=== PATIENT | female | born 1965 | race Two or more races ===

== ENCOUNTER 2018-10-23 15:39 | Emergency (ER) | payer MEDICAID ==
[~2018-10-23] VITALS: Ht 165.1 cm; Wt 83.0 kg
--- NOTE | 2018-10-23 15:58 | NUR ---
DR JENKINS AT BEDSIDE FOR EVAL.
[2018-10-23] MEDS ORDERED: KETOROLAC TROMETHAMINE INJ 30 MG/ML VIAL IV ONE (16:00)
[2018-10-23] MEDS ORDERED: PENICILLIN G BENZATHINE 2.4 MMU/4 ML ML IM ONE ×2 (16:00→16:02)
[2018-10-23] MEDS ORDERED: DEXAMETHASONE SOD PHOSPHATE 4 MG/ML VIAL IV ONE (16:00)
[2018-10-23] MEDS ORDERED: IV NS 0.9% 500 ML BAG IV ONE (16:00)
[2018-10-23] MEDS ORDERED: KETOROLAC TROMETHAMINE 15 MG/ML VIAL ONE (16:01)
[2018-10-23] MEDS ORDERED: DEXAMETHASONE SOD PHOSPHATE 10 MG/ML VIAL ONE (16:02)
[2018-10-23 17:12] VITALS: BP 143/91
--- NOTE | 2018-10-23 17:14 | NUR ---
unable to depart from [facility]
== END 2018-10-23 17:14 | disposition home or self-care (01) ==
LOC: ER 15:41
DX: J02.9 Acute pharyngitis, unspecified (principal); R03.0 Elevated blood-pressure reading, without diagnosis of hypertension; Z90.49 Acquired absence of other specified parts of digestive tract
CPT/HCPCS: 96372; 96374; 96375; 99283; J0558; J1100; J1885; J7040

== ENCOUNTER 2018-10-26 09:17 | Emergency (ER) | payer MEDICAID ==
[~2018-10-26] VITALS: Ht 162.6 cm; Wt 77.6 kg
--- NOTE | 2018-10-26 09:18 | NUR ---
TO ER BED 10, AOX4, PT C/O SOB, MID CHEST PRESSURE LIKE PAIN. HOOKED TO MONITOR, CHANGED TO GOWN, PROVIDED W WARM BLANKET, AWAITING MD ALEGRIA
--- NOTE | 2018-10-26 09:37 | NUR ---
DR QUEZADA AT BEDSIDE
[2018-10-26] MEDS ORDERED: LORAZEPAM 0.5 MG TABLET ONE (09:49)
[2018-10-26 09:52] LABS: BASOPHILS # (AUTO) 0.1 /CMM (0.0-0.2); BASOPHILS % (AUTO) 1.5 % (0.0-2.0); EOSINOPHILS % (AUTO) 1.6 % (0.0-6.0); HEMATOCRIT 41 % (33-45); HEMOGLOBIN 13.7 g/dL (11.5-14.8); LYMPHOCYTES # (AUTO) 2.3 /CMM (0.8-4.8); LYMPHOCYTES % (AUTO) 40.2 % (20.0-44.0); MEAN CORPUSCULAR HGB CONC 34 g/dl (31.0-36.0); MEAN CORPUSCULAR VOLUME 83 fL (82-100); MONOCYTES # (AUTO) 0.2 /CMM (0.1-1.30); MONOCYTES % (AUTO) 4.1 % (2.0-12.0); NEUTROPHILS % (AUTO) 52.6 % (43.0-81.0); PLATELET COUNT (AUTO) 309 /CMM (150-450); RED BLOOD CELL COUNT(AUTO) 4.91 MIL/uL (4.0-5.2); WHITE BLOOD COUNT (AUTO) 5.7 K/uL (4.3-11.0)
[2018-10-26] MEDS ORDERED: LORAZEPAM 1 MG TABLET PO ONE (10:00)
[2018-10-26 10:04] LABS: ALANINE AMINOTRANSFERASE 60 U/L (12-78); ALBUMIN 3.4 g/dL (3.4-5.0); ALCOHOL, BLOOD < 3 mg/dL (0-0); ALKALINE PHOSPHATASE 84 U/L (46-116); ASPARTATE AMINOTRANSFERASE 44 U/L (15-37); BILIRUBIN,DIRECT 0.1 mg/dL (0.0-0.2); BILIRUBIN,TOTAL 0.4 mg/dL (0.2-1.0); CALCIUM, SERUM 9.3 mg/dL (8.5-10.1); CARBON DIOXIDE 24 mmol/L (21-32); CHLORIDE 106 mmol/L (98-107); CREATININE 0.8 mg/dL (0.6-1.3); GLUCOSE 109 mg/dL (74-106); POTASSIUM 3.9 mmol/L (3.5-5.1); SODIUM SERUM 142 mmol/L (136-145); TOTAL PROTEIN, SERUM 7.7 g/dL (6.4-8.2); UREA NITROGEN, BLOOD 12 mg/dL (7-18)
[2018-10-26 10:09] LABS: APPEARANCE,URINE Clear (CLEAR); BILIRUBIN,URINE Negative (NEGATIVE); BLOOD, URINE Negative Ery/uL (NEGATIVE); COLOR,URINE Yellow (YELLOW); KETONES,URINE Negative (NEGATIVE); LEUKOCYTE ESTERASE ,URINE Negative (NEGATIVE); NITRITE, URINE Negative (NEGATIVE); PROTEIN,URINE Negative (NEGATIVE); UGLUCOSE Negative (NEGATIVE); UROBILINOGEN,URINE 0.2 EU/dL (0.2)
--- NOTE | 2018-10-26 10:57 | NUR ---
Patient discharged to home in stable condition. Written and verbal after care instructions given. Patient verbalizes understanding of instruction.
[2018-10-26 11:01] VITALS: BP 122/81
== END 2018-10-26 11:00 | disposition home or self-care (01) ==
LOC: ER 09:17
DX: F41.9 Anxiety disorder, unspecified (principal); R06.4 Hyperventilation; R51 Headache; Z90.49 Acquired absence of other specified parts of digestive tract
CPT/HCPCS: 36415; 70450-TC; 71045-TC; 80048-TC; 80076-TC; 81000-TC; 84484-TC; 85025-TC; G0480

== ENCOUNTER 2019-06-26 08:03 | Emergency (ER) | payer MEDICAID ==
[~2019-06-26] VITALS: Ht 162.6 cm; Wt 74.8 kg
[2019-06-26] MEDS ORDERED: ONDANSETRON HCL/PF 4 MG/2 ML VIAL IVP ONE (08:30)
[2019-06-26] MEDS ORDERED: FAMOTIDINE/PF INJ 20 MG/2 ML VIAL IV ONE ×2 (08:30→08:33)
[2019-06-26] MEDS ORDERED: LIDOCAINE VISCOUS 2% UD 15 ML UDC MM ONE (08:30)
[2019-06-26] MEDS ORDERED: MAG HYDROX/AL HYDROX/SIMETH 30 ML UDC PO ONE (08:30)
[2019-06-26] MEDS ORDERED: MAG HYDROX/AL HYDROX/SIMETH 30 ML UDC ONE (08:33)
[2019-06-26] MEDS ORDERED: ONDANSETRON HCL/PF 4 MG/2 ML VIAL ONE (08:33)
[2019-06-26] MEDS ORDERED: LIDOCAINE VISCOUS 2% UD 15 ML UDC ONE (08:34)
--- NOTE | 2019-06-26 08:43 | NUR ---
PT REC'D TO ER C/O ABD PAIN 12/05 FOR 2 DAYS IV STARTE 20G LEFT AC 20 LABS SENT TO LAB
--- NOTE | 2019-06-26 08:44 | NUR ---
MEDS GIVEN PER MD ORDER CONT TO MONITOR
[2019-06-26 08:49] LABS: BASOPHILS # (AUTO) 0.1 /CMM (0.0-0.2); BASOPHILS % (AUTO) 1.8 % (0.0-2.0); EOSINOPHILS % (AUTO) 2.8 % (0.0-6.0); HEMATOCRIT 42 % (33-45); HEMOGLOBIN 14.1 g/dL (11.5-14.8); LYMPHOCYTES # (AUTO) 1.1 /CMM (0.8-4.8); LYMPHOCYTES % (AUTO) 16.9 % (20.0-44.0); MEAN CORPUSCULAR HGB CONC 34 g/dl (31.0-36.0); MEAN CORPUSCULAR VOLUME 83 fL (82-100); MONOCYTES # (AUTO) 0.1 /CMM (0.1-1.30); MONOCYTES % (AUTO) 2.1 % (2.0-12.0); NEUTROPHILS # (AUTO) 5.1 /CMM (1.8-8.9); NEUTROPHILS % (AUTO) 76.4 % (43.0-81.0); PLATELET COUNT (AUTO) 316 /CMM (150-450); RED BLOOD CELL COUNT(AUTO) 5.04 MIL/uL (4.0-5.2); WHITE BLOOD COUNT (AUTO) 6.7 K/uL (4.3-11.0)
--- NOTE | 2019-06-26 08:58 | NUR ---
ULTRASOUND AT BEDSIDE
[2019-06-26 09:01] LABS: BILIRUBIN,DIRECT 0.1 mg/dL (0.0-0.2); BILIRUBIN,TOTAL 0.5 mg/dL (0.2-1.0); CALCIUM, SERUM 9.5 mg/dL (8.5-10.1); CREATININE 0.8 mg/dL (0.6-1.3); TOTAL PROTEIN, SERUM 8.3 g/dL (6.4-8.2)
--- NOTE | 2019-06-26 09:06 | NUR ---
PT SATATED FEELING BETTER AMB WITHOUT ASSISTANCE PENDING D/C
--- NOTE | 2019-06-26 09:29 | NUR ---
PT. VERBALIZED UNDERSTANDING OF AFTERCARE INSTRUCTIONS.IV removed. Catheter intact and site benign. Pressure and 4x4 applied to site. No bleeding noted.Patient discharged to home in stable condition. Written and verbal after care instructions given. Patient verbalizes understanding of instruction.
[2019-06-26 09:30] VITALS: BP 134/86
== END 2019-06-26 09:31 | disposition home or self-care (01) ==
LOC: ER 08:05
DX: R10.11 Right upper quadrant pain (principal); R11.0 Nausea; K76.0 Fatty (change of) liver, not elsewhere classified; R74.0 Nonspecific elevation of levels of transaminase and lactic acid dehydrogenase [LDH]; Z90.49 Acquired absence of other specified parts of digestive tract
CPT/HCPCS: 36415; 71045; 76705; 80048; 80076; 83690; 85025; 96374; 96375; 99285; J2405; J3490

== ENCOUNTER 2019-08-08 23:59 | Emergency (ER) | payer MEDICAID, OTHER ==
[~2019-08-08] VITALS: Ht 154.9 cm; Wt 81.6 kg
[2019-08-08 23:59] VITALS: BP 140/86
--- NOTE | 2019-08-09 00:23 | NUR ---
DR. PENG AT THE BED SIDE
[2019-08-09] MEDS ORDERED: KETOROLAC TROMETHAMINE INJ 60 MG/2 ML VIAL IM ONE ×2 (00:30→00:34)
--- NOTE | 2019-08-09 00:42 | NUR ---
PT SIGNED WAIVER BEFORE RECEIVING TORADOL SHOT. MEDICALLY CLEAR FOR D/C PER MD. Patient discharged to home in stable condition. Rx abd Written and verbal after care instructions given. Patient verbalizes understanding of instruction.
== END 2019-08-09 00:46 | disposition home or self-care (01) ==
LOC: ER 08-09 00:05
DX: H60.93 Unspecified otitis externa, bilateral (principal); Z90.49 Acquired absence of other specified parts of digestive tract
CPT/HCPCS: 96372; 99283; J1885

== ENCOUNTER 2020-03-25 09:36 | Emergency (ER) | payer OTHER ==
[~2020-03-25] VITALS: Ht 154.9 cm; Wt 81.6 kg
--- NOTE | 2020-03-25 09:40 | NUR ---
c/o chest discomfort pressure like x 6 days 7/10 pain scale. Patient a/ox4, breathing even and unlabored, no sob noted, needs attended, kept comfortable. Changed into a gown, attached to the personnel monitor. EMT tech at bedside for ekg.
[2020-03-25] MEDS ORDERED: ASPIRIN 81 MG TAB.CHEW ONE (09:58)
[2020-03-25] MEDS ORDERED: ASPIRIN 81 MG TAB.CHEW PO ONE (10:00)
[2020-03-25 10:20] LABS: EOSINOPHILS % (AUTO) 3.9 % (0.0-6.0); HEMATOCRIT 42 % (33-45); LYMPHOCYTES # (AUTO) 1.9 /CMM (0.8-4.8); LYMPHOCYTES % (AUTO) 40.5 % (20.0-44.0); MEAN CORPUSCULAR HGB CONC 33 g/dl (31.0-36.0); MEAN CORPUSCULAR VOLUME 84 fL (82-100); MONOCYTES # (AUTO) 0.2 /CMM (0.1-1.30); MONOCYTES % (AUTO) 4.6 % (2.0-12.0); NEUTROPHILS # (AUTO) 2.3 /CMM (1.8-8.9); PLATELET COUNT (AUTO) 288 /CMM (150-450); WHITE BLOOD COUNT (AUTO) 4.6 K/uL (4.3-11.0)
[2020-03-25 10:37] LABS: CALCIUM, SERUM 9.5 mg/dL (8.5-10.1); CARBON DIOXIDE 26 mmol/L (21-32); CHLORIDE 104 mmol/L (98-107); CREATININE 0.8 mg/dL (0.6-1.3); GLUCOSE 112 mg/dL (74-106); POTASSIUM 3.8 mmol/L (3.5-5.1); SODIUM SERUM 141 mmol/L (136-145); UREA NITROGEN, BLOOD 9 mg/dL (7-18)
--- NOTE | 2020-03-25 11:36 | NUR ---
Patient a/ox4, breathing even and unlabored, no sob noted. Needs attended. Kept comfortable. Denies pain or discomfort noted. Patient discharged to home in stable condition. Written and verbal after care instructions given. Patient verbalizes understanding of instruction.
[2020-03-25 11:37] VITALS: BP 129/78
== END 2020-03-25 11:38 | disposition home or self-care (01) ==
LOC: ER 09:38
DX: R07.89 Other chest pain (principal); Z90.49 Acquired absence of other specified parts of digestive tract
CPT/HCPCS: 36415; 71045-TC; 80048-TC; 84484-TC; 85025-TC

== ENCOUNTER 2020-03-25 23:15 | Emergency (ER) | payer OTHER ==
[~2020-03-25] VITALS: Ht 160 cm; Wt 81.6 kg
--- NOTE | 2020-03-25 23:15 | NUR ---
PT CAME TO THE ER C/O MIDSTERNAL CHEST PAIN X 1 HOUR [employer] [employer]. +SOB +N/V. PT WAS SEEN HERE FOR THE SAME PROBLEM. PT AAOX4, VSS, RESPIRATIONS EVEN AND UNLABORED ON RA W/ NAD NOTED. PT CONNECTED TO THE WATCH PARTS GRINDER AND POX
--- NOTE | 2020-03-25 23:20 | NUR ---
BLOOD COLLECTED AND SENT TO LAB
[2020-03-26] MEDS ORDERED: ASPIRIN 81 MG TAB.CHEW PO ONE
[2020-03-26] MEDS ORDERED: LORAZEPAM 0.5 MG TABLET PO ONE
[2020-03-26] MEDS ORDERED: LORAZEPAM 0.5 MG TABLET ONE (00:05)
[2020-03-26] MEDS ORDERED: ASPIRIN 81 MG TAB.CHEW ONE (00:05)
[2020-03-26 00:07] LABS: BASOPHILS # (AUTO) 0.1 /CMM (0.0-0.2); BASOPHILS % (AUTO) 1.2 % (0.0-2.0); EOSINOPHILS % (AUTO) 4.6 % (0.0-6.0); HEMATOCRIT 40 % (33-45); HEMOGLOBIN 13.5 g/dL (11.5-14.8); LYMPHOCYTES # (AUTO) 3.2 /CMM (0.8-4.8); MEAN CORPUSCULAR HGB CONC 34 g/dl (31.0-36.0); MEAN CORPUSCULAR VOLUME 84 fL (82-100); MONOCYTES # (AUTO) 0.4 /CMM (0.1-1.30); MONOCYTES % (AUTO) 5.5 % (2.0-12.0); NEUTROPHILS # (AUTO) 2.6 /CMM (1.8-8.9); NEUTROPHILS % (AUTO) 39.7 % (43.0-81.0); PLATELET COUNT (AUTO) 293 /CMM (150-450); WHITE BLOOD COUNT (AUTO) 6.6 K/uL (4.3-11.0)
[2020-03-26 00:15] LABS: CALCIUM, SERUM 8.9 mg/dL (8.5-10.1); CARBON DIOXIDE 27 mmol/L (21-32); CHLORIDE 104 mmol/L (98-107); CREATININE 0.8 mg/dL (0.6-1.3); GLUCOSE 153 mg/dL (74-106); POTASSIUM 3.8 mmol/L (3.5-5.1); SODIUM SERUM 141 mmol/L (136-145); UREA NITROGEN, BLOOD 9 mg/dL (7-18)
[2020-03-26 01:34] VITALS: BP 145/52
--- NOTE | 2020-03-26 01:34 | NUR ---
Patient discharged to home in stable condition. Written and verbal after care instructions given. Patient verbalizes understanding of instruction.IV removed. Catheter intact and site benign. Pressure and 4x4 applied to site. No bleeding noted. Pt ambulatory w/ steady gait
== END 2020-03-26 01:35 | disposition home or self-care (01) ==
LOC: ER 23:18
DX: R07.89 Other chest pain (principal); E78.5 Hyperlipidemia, unspecified; E07.9 Disorder of thyroid, unspecified; F41.9 Anxiety disorder, unspecified; Z90.49 Acquired absence of other specified parts of digestive tract
CPT/HCPCS: 36415; 71045-TC; 80048-TC; 84484-TC; 85025-TC

== ENCOUNTER 2020-07-20 13:13 | Emergency (ER) | payer OTHER ==
[~2020-07-20] VITALS: Ht 162.6 cm; Wt 69.9 kg
[2020-07-20] MEDS ORDERED: ACETAMINOPHEN ES 500 MG TABLET ONE (14:15)
[2020-07-20 14:23] LABS: BASOPHILS # (AUTO) 0.1 /CMM (0.0-0.2); EOSINOPHILS % (AUTO) 1.2 % (0.0-6.0); HEMATOCRIT 40 % (33-45); HEMOGLOBIN 13.8 g/dL (11.5-14.8); LYMPHOCYTES # (AUTO) 2.5 /CMM (0.8-4.8); LYMPHOCYTES % (AUTO) 44.5 % (20.0-44.0); MEAN CORPUSCULAR HGB CONC 34 g/dl (31.0-36.0); MEAN CORPUSCULAR VOLUME 83 fL (82-100); MONOCYTES # (AUTO) 0.3 /CMM (0.1-1.30); MONOCYTES % (AUTO) 5.3 % (2.0-12.0); NEUTROPHILS # (AUTO) 2.7 /CMM (1.8-8.9); PLATELET COUNT (AUTO) 319 /CMM (150-450); RED BLOOD CELL COUNT(AUTO) 4.81 MIL/uL (4.0-5.2); WHITE BLOOD COUNT (AUTO) 5.5 K/uL (4.3-11.0)
[2020-07-20 14:29] LABS: CARBON DIOXIDE 28 mmol/L (21-32); CHLORIDE 104 mmol/L (98-107); CREATININE 0.9 mg/dL (0.6-1.3); GLUCOSE 100 mg/dL (74-106); POTASSIUM 3.8 mmol/L (3.5-5.1); SODIUM SERUM 141 mmol/L (136-145); UREA NITROGEN, BLOOD 12 mg/dL (7-18)
[2020-07-20] MEDS ORDERED: ACETAMINOPHEN ES 500 MG TABLET PO ONE (14:30)
[2020-07-20 14:35] LABS: ALANINE AMINOTRANSFERASE 56 U/L (12-78); ALBUMIN 3.8 g/dL (3.4-5.0); ALKALINE PHOSPHATASE 82 U/L (46-116); ASPARTATE AMINOTRANSFERASE 19 U/L (15-37); BILIRUBIN,DIRECT 0.1 mg/dL (0.0-0.2); BILIRUBIN,TOTAL 0.5 mg/dL (0.2-1.0); TOTAL PROTEIN, SERUM 8.1 g/dL (6.4-8.2)
[2020-07-20 14:38] LABS: BILIRUBIN,URINE SMALL (NEGATIVE); COLOR,URINE YELLOW (YELLOW); LEUKOCYTE ESTERASE ,URINE Negative (NEGATIVE); NITRITE, URINE Negative (NEGATIVE); PROTEIN,URINE Negative (NEGATIVE); UGLUCOSE Negative (NEGATIVE); UROBILINOGEN,URINE 0.2 EU/dL (0.2)
[2020-07-20 14:39] LABS: BACTERIA,URINE Few /HPF (None Seen); SQUAMOUS EPITHELIAL CELL,UR Few /HPF (None Seen); WBC,URINE 0-2 /HPF (0-3)
--- NOTE | 2020-07-20 14:40 | NUR ---
ADAN SFROM HOME TO ER BED 12. AAOX4. NOT IN RESP DSITRES. AMBULATORY. CAME IN FOR GEN BODY ACH E AND BURNING SENSATION. PT ASLO REPORT HAVING PALPITATION AFTER HAVING THE COVID VACCINE ON FRIDAY. WAS AT THE BEDSIDE FOR EVAL. AWAITING ORDERS
[2020-07-20 15:43] VITALS: BP 135/88
--- NOTE | 2020-07-20 15:43 | NUR ---
Patient discharged to home in stable condition. Written and verbal after care instructions given. Patient verbalizes understanding of instruction. Pt ambulatory with a steady gait
[2020-07-20 16:40] LABS: CALCIUM, SERUM 9.5 mg/dL (8.5-10.1)
== END 2020-07-20 15:44 | disposition home or self-care (01) ==
LOC: ER 13:19
DX: U07.1 COVID-19 (principal); M79.10 Myalgia, unspecified site; E78.5 Hyperlipidemia, unspecified; R00.2 Palpitations; R51.9 Headache, unspecified; R20.8 Other disturbances of skin sensation; T50.B95A Adverse effect of other viral vaccines, initial encounter; Y92.89 Other specified places as the place of occurrence of the external cause
CPT/HCPCS: 36415; 71045; 80048; 80076; 81001; 84484; 84703; 85025; 87426; 93005; 99285; C9803

== ENCOUNTER 2020-09-30 18:01 | Emergency (ER) | payer OTHER ==
[~2020-09-30] VITALS: Ht 134.6 cm; Wt 81.6 kg
[2020-09-30] MEDS ORDERED: LORAZEPAM INJ 2 MG/ML VIAL IV ONE (18:30)
[2020-09-30] MEDS ORDERED: KETOROLAC TROMETHAMINE INJ 30 MG/ML VIAL IV ONE (18:30)
[2020-09-30] MEDS ORDERED: IV NS 0.9% 1,000 ML BAG IV ONE (18:30)
[2020-09-30] MEDS ORDERED: KETOROLAC TROMETHAMINE INJ 30 MG/ML VIAL ONE (18:34)
[2020-09-30] MEDS ORDERED: LORAZEPAM INJ 2 MG/ML VIAL ONE (18:35)
[2020-09-30 18:48] LABS: BASOPHILS # (AUTO) 0.1 /CMM (0.0-0.2); BASOPHILS % (AUTO) 0.9 % (0.0-2.0); EOSINOPHILS % (AUTO) 4.1 % (0.0-6.0); HEMATOCRIT 40 % (33-45); HEMOGLOBIN 13.3 g/dL (11.5-14.8); LYMPHOCYTES # (AUTO) 2.9 /CMM (0.8-4.8); LYMPHOCYTES % (AUTO) 43.9 % (20.0-44.0); MEAN CORPUSCULAR HGB CONC 34 g/dl (31.0-36.0); MEAN CORPUSCULAR VOLUME 84 fL (82-100); MONOCYTES # (AUTO) 0.3 /CMM (0.1-1.30); MONOCYTES % (AUTO) 4.7 % (2.0-12.0); NEUTROPHILS # (AUTO) 3.1 /CMM (1.8-8.9); NEUTROPHILS % (AUTO) 46.4 % (43.0-81.0); PLATELET COUNT (AUTO) 284 /CMM (150-450); RED BLOOD CELL COUNT(AUTO) 4.75 MIL/uL (4.0-5.2); WHITE BLOOD COUNT (AUTO) 6.6 K/uL (4.3-11.0)
[2020-09-30 18:54] LABS: ALANINE AMINOTRANSFERASE 40 U/L (12-78); ALBUMIN 3.7 g/dL (3.4-5.0); ALKALINE PHOSPHATASE 86 U/L (46-116); ASPARTATE AMINOTRANSFERASE 14 U/L (15-37); BILIRUBIN,DIRECT 0.1 mg/dL (0.0-0.2); BILIRUBIN,TOTAL 0.5 mg/dL (0.2-1.0); CALCIUM, SERUM 8.7 mg/dL (8.5-10.1); CARBON DIOXIDE 27 mmol/L (21-32); CHLORIDE 105 mmol/L (98-107); CREATININE 0.9 mg/dL (0.6-1.3); GLUCOSE 144 mg/dL (74-106); POTASSIUM 3.4 mmol/L (3.5-5.1); SODIUM SERUM 141 mmol/L (136-145); TOTAL PROTEIN, SERUM 7.6 g/dL (6.4-8.2); UREA NITROGEN, BLOOD 13 mg/dL (7-18)
--- NOTE | 2020-09-30 18:59 | NUR ---
Patient came in to the er c/o "JAMES started 1H ago worse now feel nauseous and SOB". On room air, breathing evenly and unlabored. COnnected to the monitor and pulse ox. kept comfortable, will continue to monitor accordingly.
--- NOTE | 2020-09-30 19:04 | NUR ---
report given to Gabriella ANDRE for jessa
--- NOTE | 2020-09-30 19:05 | NUR ---
REC'D REPORT FROM THAI SHULTZ FOR JUAN
[2020-09-30] MEDS ORDERED: ACETAMINOPHEN 325 MG TABLET PO ONE (19:30)
[2020-09-30] MEDS ORDERED: ACETAMINOPHEN 325 MG TABLET ONE (19:30)
[2020-09-30] MEDS ORDERED: IBUP-1955 PO (19:30)
[2020-09-30] MEDS ORDERED: LORA-259 PO (19:30)
--- NOTE | 2020-09-30 19:34 | NUR ---
Patient discharged to home in stable condition. Written and verbal after care instructions given. Patient verbalizes understanding of instruction. IV removed. Catheter intact and site benign. Pressure and 4x4 applied to site. No bleeding noted. Pt pushed out via wheelchair.
[2020-09-30 19:40] VITALS: BP 135/84
== END 2020-09-30 19:34 | disposition home or self-care (01) ==
LOC: ER 18:04
DX: R51.9 Headache, unspecified (principal); F41.9 Anxiety disorder, unspecified; I10 Essential (primary) hypertension; E78.5 Hyperlipidemia, unspecified; E07.9 Disorder of thyroid, unspecified; Z90.49 Acquired absence of other specified parts of digestive tract; Z79.899 Other long term (current) drug therapy
CPT/HCPCS: 36415; 71045; 80048; 80076; 84484; 85025; 93005; 96361; 96374; 96375; 99285; J1885; J2060; J7030

== ENCOUNTER 2020-11-25 04:36 | Emergency (ER) | payer OTHER ==
[~2020-11-25] VITALS: Ht 162.6 cm; Wt 81.6 kg
[~2020-11-25 04:36] MED LIST: IBUP-1955 PO; LORA-259 PO
--- NOTE | 2020-11-25 04:39 | NUR ---
pt bibhusband c/o high blood pressure and nausea "that may be a panic attack". Pt aaox4 breathing evenly and unlabored. per , pt was nauseated and had high blood pressure at 0400 this morning. Pt attached to monitor and pox. Pt bp 137/73. Skin warm and dry. Pt given blanket and call light within reach
[2020-11-25] MEDS: ONDANSETRON 4 MG TAB.RAPDIS SL ONE (05:15)
[2020-11-25] MEDS: LORAZEPAM 1 MG TABLET PO ONE (05:15)
[2020-11-25] MEDS ORDERED: LORAZEPAM 1 MG TABLET ONE (05:24)
[2020-11-25] MEDS ORDERED: ONDANSETRON 4 MG TAB.RAPDIS ONE (05:25)
[2020-11-25] MEDS ORDERED: ONDA4TAB5 PO (05:29)
--- NOTE | 2020-11-25 06:03 | NUR ---
Patient discharged to home in stable condition. Written and verbal after care instructions given. Patient verbalizes understanding of instruction.
[2020-11-25 06:13] VITALS: BP 137/76
== END 2020-11-25 06:14 | disposition home or self-care (01) ==
LOC: ER 04:39
DX: R11.2 Nausea with vomiting, unspecified (principal); F41.9 Anxiety disorder, unspecified; I10 Essential (primary) hypertension; E78.5 Hyperlipidemia, unspecified; Z90.49 Acquired absence of other specified parts of digestive tract; Z79.899 Other long term (current) drug therapy
CPT/HCPCS: 99283; Q0162

== ENCOUNTER 2021-01-10 23:42 | Emergency (ER) | payer MEDICAID, OTHER ==
[~2021-01-10] VITALS: Ht 162.6 cm; Wt 81.6 kg
[~2021-01-10 23:42] MED LIST changes: +ONDA4TAB5 PO
--- NOTE | 2021-01-11 | NUR ---
PT CAMEIN WITH C/O HIGH BP AND HEADACHE X 1 DAY. PT A/O X 3. PT PLACED ON O2 2 LITER VIA NC.
[2021-01-11] MEDS ORDERED: LORAZEPAM INJ 2 MG/ML VIAL ONE (00:24)
[2021-01-11] MEDS ORDERED: LORAZEPAM INJ 2 MG/ML VIAL IV ONE (00:30)
[2021-01-11 00:38] LABS: BASOPHILS % (AUTO) 0.6 % (0.0-2.0); EOSINOPHILS % (AUTO) 4.1 % (0.0-6.0); HEMATOCRIT 42 % (33-45); HEMOGLOBIN 13.7 g/dL (11.5-14.8); LYMPHOCYTES # (AUTO) 2.3 K/uL (0.8-4.8); LYMPHOCYTES % (AUTO) 35.9 % (20.0-44.0); MEAN CORPUSCULAR HGB CONC 33 g/dl (31.0-36.0); MEAN CORPUSCULAR VOLUME 84 fL (82-100); MONOCYTES # (AUTO) 0.3 K/uL (0.1-1.30); MONOCYTES % (AUTO) 4.4 % (2.0-12.0); NEUTROPHILS # (AUTO) 3.6 K/uL (1.8-8.9); PLATELET COUNT (AUTO) 292 K/uL (150-450); RED BLOOD CELL COUNT(AUTO) 4.98 MIL/uL (4.0-5.2); WHITE BLOOD COUNT (AUTO) 6.5 K/uL (4.3-11.0)
[2021-01-11 00:51] LABS: CALCIUM, SERUM 9.3 mg/dL (8.5-10.1); CARBON DIOXIDE 27 mmol/L (21-32); CHLORIDE 107 mmol/L (98-107); CREATININE 0.7 mg/dL (0.6-1.3); GLUCOSE 118 mg/dL (74-106); SODIUM SERUM 144 mmol/L (136-145); UREA NITROGEN, BLOOD 13 mg/dL (7-18)
[2021-01-11 01:04] LABS: ALANINE AMINOTRANSFERASE 44 U/L (12-78); ALKALINE PHOSPHATASE 107 U/L (46-116); ASPARTATE AMINOTRANSFERASE 21 U/L (15-37); BILIRUBIN,DIRECT 0.1 mg/dL (0.0-0.2); BILIRUBIN,TOTAL 0.5 mg/dL (0.2-1.0); TOTAL PROTEIN, SERUM 8.4 g/dL (6.4-8.2)
[2021-01-11 02:00] LABS: D-DIMER 0.53 mg/L(FEU (0.17-0.50)
[2021-01-11] MEDS ORDERED: IV NS 0.9% 250 ML IV ONE (02:23)
[2021-01-11] MEDS ORDERED: CT SWABBABLE VALVE TRANS SET 1 EA INFUS.SET MC ONE (02:23)
[2021-01-11] MEDS ORDERED: IOHEXOL-350 100 ML VIAL IV ONE (02:23)
--- NOTE | 2021-01-11 04:04 | NUR ---
Patient discharged to home in stable condition. Written and verbal after care instructions given. Patient verbalizes understanding of instruction.
[2021-01-15 15:07] VITALS: BP 111/72
== END 2021-01-11 04:04 | disposition home or self-care (01) ==
LOC: ER 23:48
DX: R07.89 Other chest pain (principal); F41.9 Anxiety disorder, unspecified; I10 Essential (primary) hypertension; E78.5 Hyperlipidemia, unspecified; E07.9 Disorder of thyroid, unspecified; Z90.49 Acquired absence of other specified parts of digestive tract; Z79.899 Other long term (current) drug therapy
CPT/HCPCS: 36415; 71045; 71275; 80048; 80076; 83880; 84484; 85025; 85378; 85730; 93005; 96374; 99285; J2060; J7050; Q9967

== ENCOUNTER 2022-12-10 05:48 | Emergency (ER) | payer MEDICAID, OTHER ==
[~2022-12-10] VITALS: Ht 162.6 cm; Wt 88.9 kg
[2022-12-10] MEDS ORDERED: KETOROLAC TROMETHAMINE 15 MG/ML VIAL ONE (06:55)
[2022-12-10] MEDS ORDERED: diphenhydrAMINE HCL 50 MG/ML VIAL ONE (06:55)
[2022-12-10] MEDS ORDERED: METOCLOPRAMIDE HCL 10 MG/2 ML VIAL ONE (06:55)
[2022-12-10] MEDS ORDERED: ACETAMINOPHEN ES 500 MG TABLET ONE (06:56)
[2022-12-10] MEDS ORDERED: KETOROLAC TROMETHAMINE INJ 30 MG/ML VIAL IV ONE (07:00)
[2022-12-10] MEDS ORDERED: ACETAMINOPHEN ES 500 MG TABLET PO ONE (07:00)
[2022-12-10] MEDS ORDERED: diphenhydrAMINE HCL 50 MG/ML VIAL IV ONE (07:00)
[2022-12-10] MEDS ORDERED: IV NS 0.9% 1,000 ML BAG IV ONE (07:00)
[2022-12-10] MEDS ORDERED: METOCLOPRAMIDE HCL 10 MG/2 ML VIAL IV ONE (07:00)
[2022-12-10] MEDS ORDERED: IBUP-1955 PO (08:00)
[2022-12-10 08:15] VITALS: BP 129/79; TEMP 97.5; O2SAT 99
== END 2022-12-10 08:15 | disposition home or self-care (01) ==
LOC: ER 05:54
DX: R51.9 Headache, unspecified (principal); E78.5 Hyperlipidemia, unspecified; Z90.49 Acquired absence of other specified parts of digestive tract; Z79.899 Other long term (current) drug therapy
CPT/HCPCS: 99284; 96374; 96375; 96361; J1200; J2765; J7030; J1885

== ENCOUNTER 2023-02-19 16:06 | Emergency (ER) | payer OTHER ==
[~2023-02-19] VITALS: Ht 162.6 cm; Wt 81.6 kg
[2023-02-19] MEDS ORDERED: KETOROLAC TROMETHAMINE INJ 30 MG/ML VIAL ONE (16:47)
[2023-02-19 16:56] LABS: BASOPHILS % (AUTO) 0.7 % (0.0-2.0); EOSINOPHILS # (AUTO) 0.2 K/uL (0.0-0.7); EOSINOPHILS % (AUTO) 3.6 % (0.0-6.0); HEMATOCRIT 38 % (33-45); HEMOGLOBIN 12.7 g/dL (11.5-14.8); LYMPHOCYTES # (AUTO) 2.7 K/uL (0.8-4.8); LYMPHOCYTES % (AUTO) 45.8 % (20.0-44.0); MEAN CORPUSCULAR HEMOGLOBIN 28 PG (26.0-33.0); MEAN CORPUSCULAR HGB CONC 33 g/dl (31.0-36.0); MEAN CORPUSCULAR VOLUME 82 fL (82-100); MONOCYTES # (AUTO) 0.3 K/uL (0.1-1.30); NEUTROPHILS # (AUTO) 2.6 K/uL (1.8-8.9); NEUTROPHILS % (AUTO) 44.9 % (43.0-81.0); PLATELET COUNT (AUTO) 282 K/uL (150-450); RED BLOOD CELL COUNT(AUTO) 4.63 MIL/uL (4.0-5.2); RED CELL DISTRIBUTION WIDTH 13.6 % (11.5-15.0); WHITE BLOOD COUNT (AUTO) 5.9 K/uL (4.3-11.0)
[2023-02-19] MEDS ORDERED: KETOROLAC TROMETHAMINE INJ 30 MG/ML VIAL IV ONE (17:00)
[2023-02-19] MEDS ORDERED: IV NS 0.9% 1,000 ML BAG IV ONE (17:00)
[2023-02-19 17:05] LABS: CALCIUM, SERUM 8.9 mg/dL (8.5-10.1); CARBON DIOXIDE 26 mmol/L (21-32); CHLORIDE 102 mmol/L (98-107); CREATININE 0.7 mg/dL (0.6-1.3); GLUCOSE 150 mg/dL (74-106); POTASSIUM 3.4 mmol/L (3.5-5.1); SODIUM SERUM 138 mmol/L (136-145); UREA NITROGEN, BLOOD 12 mg/dL (7-18)
[2023-02-19 18:40] VITALS: BP 118/70; TEMP 98.4; O2SAT 100
== END 2023-02-19 18:38 | disposition home or self-care (01) ==
LOC: ER 16:09
DX: F41.9 Anxiety disorder, unspecified (principal); R07.89 Other chest pain; I10 Essential (primary) hypertension; E78.5 Hyperlipidemia, unspecified; Z79.899 Other long term (current) drug therapy; Z90.49 Acquired absence of other specified parts of digestive tract
CPT/HCPCS: 99285; 96374; 71045; 96361; 93005; 85025; 80048; 36415; 84484; J1885

== ENCOUNTER 2023-12-09 19:54 | Emergency (ER) | payer OTHER ==
[~2023-12-09] VITALS: Ht 160 cm; Wt 81.6 kg
[2023-12-09 21:33] VITALS: TEMP 98.1
[2023-12-09 22:17] LABS: BASOPHILS # (AUTO) 0.1 K/uL (0.0-0.2); BASOPHILS % (AUTO) 0.8 % (0.0-2.0); EOSINOPHILS # (AUTO) 0.4 K/uL (0.0-0.7); EOSINOPHILS % (AUTO) 5.9 % (0.0-6.0); HEMATOCRIT 37 % (33-45); HEMOGLOBIN 12.3 g/dL (11.5-14.8); LYMPHOCYTES # (AUTO) 3.2 K/uL (0.8-4.8); LYMPHOCYTES % (AUTO) 51.1 % (20.0-44.0); MEAN CORPUSCULAR HEMOGLOBIN 28 PG (26.0-33.0); MEAN CORPUSCULAR HGB CONC 33 g/dl (31.0-36.0); MEAN CORPUSCULAR VOLUME 83 fL (82-100); MONOCYTES # (AUTO) 0.4 K/uL (0.1-1.30); MONOCYTES % (AUTO) 6.7 % (2.0-12.0); NEUTROPHILS # (AUTO) 2.2 K/uL (1.8-8.9); NEUTROPHILS % (AUTO) 35.5 % (43.0-81.0); PLATELET COUNT (AUTO) 253 K/uL (150-450); RED BLOOD CELL COUNT(AUTO) 4.48 MIL/uL (4.0-5.2); RED CELL DISTRIBUTION WIDTH 14.5 % (11.5-15.0); WHITE BLOOD COUNT (AUTO) 6.2 K/uL (4.3-11.0)
[2023-12-09 22:26] LABS: CALCIUM, SERUM 8.7 mg/dL (8.5-10.1); CARBON DIOXIDE 26 mmol/L (21-32); CHLORIDE 107 mmol/L (98-107); CREATININE 0.6 mg/dL (0.6-1.3); GLUCOSE 108 mg/dL (74-106); POTASSIUM 3.9 mmol/L (3.5-5.1); SODIUM SERUM 140 mmol/L (136-145); UREA NITROGEN, BLOOD 11 mg/dL (7-18)
[2023-12-09] MEDS ORDERED: ONDANSETRON HCL/PF 4 MG/2 ML VIAL ONE (23:03)
[2023-12-09] MEDS ORDERED: MORPHINE SULFATE INJ 4 MG/ML DISP.SYRIN ONE (23:03)
[2023-12-09] MEDS ORDERED: FAMOTIDINE (20 MG) 20 MG TABLET ONE (23:04)
[2023-12-09] MEDS: MORPHINE SULFATE INJ 2 MG/ML DISP.SYRIN IV ONE (23:10)
[2023-12-09] MEDS: FAMOTIDINE (20 MG) 20 MG TABLET PO ONE (23:10)
[2023-12-09] MEDS: ONDANSETRON HCL/PF - ER 4 MG/2 ML VIAL IV ONE (23:10)
[2023-12-10] MEDS ORDERED: NAPR-1009 PO
[2023-12-10 00:12] VITALS: BP 109/72; O2SAT 98
== END 2023-12-10 00:12 | disposition home or self-care (01) ==
LOC: ER 20:02
DX: R07.89 Other chest pain (principal); R51.9 Headache, unspecified; I10 Essential (primary) hypertension; E78.5 Hyperlipidemia, unspecified; E11.9 Type 2 diabetes mellitus without complications; Z79.1 Long term (current) use of non-steroidal anti-inflammatories (NSAID); Z98.890 Other specified postprocedural states; Z79.899 Other long term (current) drug therapy
CPT/HCPCS: 99285; 96374; 71045; 96375; 93005; 85025; 80048; 36415; 84484; J2270; J2405 ×2

== ENCOUNTER 2024-07-11 15:31 | Emergency (ER) | payer OTHER ==
[~2024-07-11] VITALS: Ht 134.6 cm; Wt 89.8 kg
[~2024-07-11 15:31] MED LIST changes: +NAPR-1009 PO
[2024-07-11] MEDS ORDERED: METOCLOPRAMIDE HCL 10 MG/2 ML VIAL ONE (16:12)
[2024-07-11] MEDS: METOCLOPRAMIDE HCL 10 MG/2 ML VIAL IV ONE (16:15)
[2024-07-11] MEDS: IV NS 0.9% 1,000 ML BAG IV ONE (16:16)
[2024-07-11 16:20] LABS: BASOPHILS # (AUTO) 0.1 K/uL (0.0-0.2); EOSINOPHILS # (AUTO) 0.3 K/uL (0.0-0.7); EOSINOPHILS % (AUTO) 4.5 % (0.0-6.0); HEMATOCRIT 41 % (33-45); HEMOGLOBIN 13.9 g/dL (11.5-14.8); LYMPHOCYTES # (AUTO) 1.9 K/uL (0.8-4.8); LYMPHOCYTES % (AUTO) 32.2 % (20.0-44.0); MEAN CORPUSCULAR HEMOGLOBIN 28 PG (26.0-33.0); MEAN CORPUSCULAR HGB CONC 34 g/dl (31.0-36.0); MEAN CORPUSCULAR VOLUME 82 fL (82-100); MONOCYTES # (AUTO) 0.4 K/uL (0.1-1.30); MONOCYTES % (AUTO) 5.9 % (2.0-12.0); NEUTROPHILS # (AUTO) 3.4 K/uL (1.8-8.9); NEUTROPHILS % (AUTO) 56.4 % (43.0-81.0); PLATELET COUNT (AUTO) 306 K/uL (150-450); RED BLOOD CELL COUNT(AUTO) 4.93 MIL/uL (4.0-5.2); RED CELL DISTRIBUTION WIDTH 13.5 % (11.5-15.0)
[2024-07-11 16:36] LABS: CALCIUM, SERUM 9.5 mg/dL (8.5-10.1); CARBON DIOXIDE 29 mmol/L (21-32); CHLORIDE 105 mmol/L (98-107); GLUCOSE 132 mg/dL (74-106); POTASSIUM 3.5 mmol/L (3.5-5.1); SODIUM SERUM 141 mmol/L (136-145); UREA NITROGEN, BLOOD 15 mg/dL (7-18)
[2024-07-11 16:43] LABS: ALANINE AMINOTRANSFERASE 42 U/L (12-78); ALKALINE PHOSPHATASE 101 U/L (46-116); ASPARTATE AMINOTRANSFERASE 20 U/L (15-37); BILIRUBIN,DIRECT 0.1 mg/dL (0.0-0.2); BILIRUBIN,TOTAL 0.4 mg/dL (0.2-1.0); TOTAL PROTEIN, SERUM 8.2 g/dL (6.4-8.2)
[2024-07-11] MEDS ORDERED: CT SWABBABLE VALVE TRANS SET 1 EA INFUS.SET MC ONE ×2 (16:46→16:47)
[2024-07-11] MEDS ORDERED: IOHEXOL-350 100 ML VIAL IV ONE (16:46)
[2024-07-11] MEDS ORDERED: IV NS 0.9% 250 ML IV ONE (16:47)
[2024-07-11] MEDS ORDERED: ACETAMINOPHEN 325 MG TABLET ONE (19:09)
[2024-07-11] MEDS: ACETAMINOPHEN 325 MG TABLET PO ONE (19:11)
[2024-07-11 20:08] VITALS: BP 142/88; TEMP 98.4; O2SAT 98
== END 2024-07-11 20:08 | disposition home or self-care (01) ==
LOC: ER 15:31
DX: I10 Essential (primary) hypertension (principal); R51.9 Headache, unspecified; R42 Dizziness and giddiness; R11.2 Nausea with vomiting, unspecified; E11.9 Type 2 diabetes mellitus without complications; E78.5 Hyperlipidemia, unspecified; K76.0 Fatty (change of) liver, not elsewhere classified; Z90.49 Acquired absence of other specified parts of digestive tract
CPT/HCPCS: 99285; 70450; 96374; 71045; 96361; 93005; 70498; 70496; 85025; 80048; 83690; 80076; 36415; 84484 ×2; J2765; J7030; J7050; Q9967

== ENCOUNTER 2025-01-14 06:20 | Emergency (ER) | payer OTHER ==
[~2025-01-14] VITALS: Ht 160 cm; Wt 72.6 kg
[2025-01-14] MEDS ORDERED: AMLODIPINE BESYLATE 5 MG TABLET ONE (06:49)
[2025-01-14] MEDS: AMLODIPINE BESYLATE 5 MG TABLET PO ONE (06:49)
[2025-01-14] MEDS ORDERED: AMLO-212 PO (07:45)
[2025-01-14 07:52] VITALS: BP 150/86; TEMP 98.5; O2SAT 98
== END 2025-01-14 07:53 | disposition home or self-care (01) ==
LOC: ER 06:29
DX: I10 Essential (primary) hypertension (principal); E78.5 Hyperlipidemia, unspecified; F41.9 Anxiety disorder, unspecified; Z86.73 Personal history of transient ischemic attack (TIA), and cerebral infarction without residual deficits; Z90.49 Acquired absence of other specified parts of digestive tract

== ENCOUNTER 2025-03-04 03:16 | Emergency (ER) | payer OTHER ==
[~2025-03-04] VITALS: Ht 162.6 cm; Wt 83.9 kg
[~2025-03-04 03:16] MED LIST changes: +AMLO-212 PO
[2025-03-04] MEDS ORDERED: KETOROLAC TROMETHAMINE INJ 30 MG/ML VIAL ONE (03:33)
[2025-03-04] MEDS: KETOROLAC TROMETHAMINE 15 MG/ML VIAL IV ONE (03:49)
[2025-03-04 04:47] LABS: PLATELET COUNT (AUTO) 267 K/uL (150-450); RED BLOOD CELL COUNT(AUTO) 4.42 MIL/uL (4.0-5.2); RED CELL DISTRIBUTION WIDTH 13.7 % (11.5-15.0); WHITE BLOOD COUNT (AUTO) 7.4 K/uL (4.3-11.0)
[2025-03-04 04:51] LABS: CALCIUM, SERUM 8.7 mg/dL (8.5-10.1); CREATININE 0.7 mg/dL (0.6-1.3); SODIUM SERUM 143 mmol/L (136-145); UREA NITROGEN, BLOOD 16 mg/dL (7-18)
[2025-03-04 04:55] LABS: INR 1.06 (0.91-1.10)
[2025-03-04] MEDS ORDERED: CYCL15CA23 PO (05:09)
[2025-03-04] MEDS ORDERED: IBUP-1957 PO (05:09)
[2025-03-04] MEDS ORDERED: PRED50TA PO (05:09)
[2025-03-04 05:16] VITALS: BP 130/82; TEMP 98.3; O2SAT 96
== END 2025-03-04 05:17 | disposition home or self-care (01) ==
LOC: ER 03:19
DX: M62.838 Other muscle spasm (principal); M54.12 Radiculopathy, cervical region; E11.9 Type 2 diabetes mellitus without complications; E78.5 Hyperlipidemia, unspecified; I11.9 Hypertensive heart disease without heart failure; K76.0 Fatty (change of) liver, not elsewhere classified; Z79.1 Long term (current) use of non-steroidal anti-inflammatories (NSAID); Z90.49 Acquired absence of other specified parts of digestive tract
CPT/HCPCS: 99285; 96374; 71045; 93005; 85025; 80048; 36415; 84484; 85730; J1885

== ENCOUNTER 2025-04-17 12:47 | Emergency (ER) | payer OTHER ==
[~2025-04-17] VITALS: Ht 162.6 cm; Wt 81.6 kg
[~2025-04-17 12:47] MED LIST changes: +CYCL15CA23 PO; +IBUP-1957 PO; +PRED50TA PO
[2025-04-17 14:10] LABS: APPEARANCE,URINE CLEAR (CLEAR); BLOOD, URINE TRACE-INTA Ery/uL (NEGATIVE); LEUKOCYTE ESTERASE ,URINE NEGATIVE (NEGATIVE); NITRITE, URINE NEGATIVE (NEGATIVE); UGLUCOSE NEGATIVE (NEGATIVE)
[2025-04-17 14:11] VITALS: TEMP 98.5
[2025-04-17 14:11] LABS: PREGNANCY TEST URINE QUAL NEGATIVE (NEGATIVE)
[2025-04-17 14:18] LABS: PLATELET COUNT (AUTO) 272 K/uL (150-450); RED BLOOD CELL COUNT(AUTO) 4.93 MIL/uL (4.0-5.2); RED CELL DISTRIBUTION WIDTH 14.1 % (11.5-15.0); WHITE BLOOD COUNT (AUTO) 5.9 K/uL (4.3-11.0)
[2025-04-17 14:23] LABS: ADD URINE CULTURE NO
[2025-04-17 14:28] LABS: CALCIUM, SERUM 8.7 mg/dL (8.5-10.1); CREATININE 0.6 mg/dL (0.6-1.3); SODIUM SERUM 141.0 mmol/L (136-145); UREA NITROGEN, BLOOD 15.0 mg/dL (7-18)
[2025-04-17] MEDS ORDERED: KETOROLAC TROMETHAMINE 15 MG/ML VIAL ONE (14:37)
[2025-04-17 14:38] LABS: ASPARTATE AMINOTRANSFERASE 16.0 U/L (15-37); TOTAL PROTEIN, SERUM 7.9 g/dL (6.4-8.2)
[2025-04-17] MEDS: IV NS 0.9% 1,000 ML BAG IV ONE (15:05)
[2025-04-17] MEDS: KETOROLAC TROMETHAMINE 15 MG/ML VIAL IV ONE (15:08)
[2025-04-17] MEDS ORDERED: IBUP-1490 PO (16:28)
[2025-04-17 17:55] VITALS: BP 127/82; O2SAT 97
== END 2025-04-17 17:48 | disposition home or self-care (01) ==
LOC: ER 12:56
DX: R10.11 Right upper quadrant pain (principal); I11.9 Hypertensive heart disease without heart failure; E11.9 Type 2 diabetes mellitus without complications; E78.5 Hyperlipidemia, unspecified; K76.0 Fatty (change of) liver, not elsewhere classified; Z79.1 Long term (current) use of non-steroidal anti-inflammatories (NSAID); Z79.52 Long term (current) use of systemic steroids; Z86.73 Personal history of transient ischemic attack (TIA), and cerebral infarction without residual deficits; Z90.49 Acquired absence of other specified parts of digestive tract
CPT/HCPCS: 99285; 74176; 96374; 96361; 85025; 80048; 83690; 80076; 84703; 81001; 36415; J1885; J7030